=== PATIENT | female | born 1980 | race Two or more races ===

== ENCOUNTER 2020-04-11 13:50 | Emergency (ER) | payer MEDICAID, SELFPAY | END 2020-04-11 16:14 | disposition left against medical advice (07) | PROVIDERS: Emergency Provider Emergency Medicine; PCP Student in an Organized Health Care Education/Training Program | DX: M54.5 Low back pain (principal) | CPT/HCPCS: 99281 ==

== ENCOUNTER 2020-07-29 15:04 | Outpatient (REF) | payer MEDICAID, SELFPAY ==
--- NOTE | ~2020-07-29 | US_ITS ---
EXAMINATION: US DIAGNOSTIC ULTRASOUND BREAST, LEFT breast CLINICAL INFORMATION: Six-month follow-up left breast nodule. COMPARISON: December 30, 2019 and July 02, 2019. TECHNIQUE: Ultrasound of the breast is performed with real-time alonso scale imaging and color Doppler. FINDINGS: There is again noted to be a stable well-circumscribed hypoechoic lesion 1:00 position 2 cm from the nipple measuring approximately 6 x 3 x 6 mm in size. This is avascular and wider than tall. No distal sound shadowing appreciated. Results are discussed with the patient at time of visit. US/US breast LT limited IMPRESSION: Stable benign-appearing left breast mass 1:00 position 2 cm from nipple for which one-year follow-up ultrasound study is recommended. ASSESSMENT: BI-RADS 3: Probably Benign RECOMMENDATION: Diagnostic ultrasound in 12 months. This patient's information was entered into a reminder system with a target due date for their next mammogram.
== END 2020-07-29 15:05 | disposition home or self-care (01) ==
LOC: HO.MAMMO 15:04
PROVIDERS: Visit Provider Student in an Organized Health Care Education/Training Program
DX: N63.21 Unspecified lump in the left breast, upper outer quadrant (principal)
CPT/HCPCS: 76642

== ENCOUNTER 2020-08-19 10:23 | Outpatient (REF) | payer MEDICAID, SELFPAY ==
--- NOTE | ~2020-08-19 | MR_ITS ---
EXAMINATION: MR CERVICAL SPINE WITHOUT CONTRAST CLINICAL INFORMATION: Neck pain. COMPARISON: No relevant prior imaging. TECHNIQUE: MRI of the cervical spine was obtained using routine sequences without contrast. Slightly limited study with motion artifacts. FINDINGS: VERTEBRAL BODIES AND PARASPINAL SOFT TISSUES: There is mild endplate edema posteriorly at the C6-C7 level. The marrow signal is otherwise fairly homogeneous. No compression fractures are seen. Slight retrosubluxation evident at the C4-C5 level. There is a very mild reversal normal cervical lordosis. No significant disc space narrowing is seen. The paraspinal soft tissues are normal. The vertebral artery flow voids are normally seen. The lung apices are clear. CERVICOMEDULLARY JUNCTION AND VISUALIZED POSTERIOR FOSSA: The craniovertebral junction and imaged portions of the brain parenchyma appear normal. No cord signal abnormality or syrinx is seen. SPINAL LEVELS: C2-C3: No disc pathology. No central canal stenosis or foraminal narrowing. C3-C4: No disc abnormality. Patent central canal and foramina. C4-C5: Mild retrosubluxation and posterior disc bulge with mild impression upon the ventral cord and thecal sac. No central canal stenosis or foraminal narrowing. C5-C6: Small central disc protrusion. No central canal stenosis or foraminal narrowing. C6-C7: Mild posterior disc bulge and endplate spurring with a central to right lateral recess disc extrusion mildly distorting the ventral thecal sac. No central canal stenosis. Patent foramina. C7-T1: No disc pathology. No central canal stenosis or foraminal narrowing. MR/MR cervical spine wo con IMPRESSION: Mild posterior endplate edema and disc bulge at C6-C7 with a central to right lateral recess disc extrusion mildly distorting the ventral thecal sac. No central canal stenosis. Mild retrosubluxation and disc bulge slightly impressing upon the ventral cord and thecal sac at C4-C5. Small central disc protrusion at the C5-C6 level.
== END 2020-08-19 10:24 | disposition home or self-care (01) ==
LOC: HO.MRI 10:23
PROVIDERS: Visit Provider Emergency Medicine
DX: M54.2 Cervicalgia (principal); M54.9 Dorsalgia, unspecified
CPT/HCPCS: 72141

== ENCOUNTER 2020-08-31 12:15 | Emergency (ER) | payer MEDICAID, SELFPAY ==
--- NOTE | ~2020-08-31 | CT_ITS ---
EXAMINATION: CT HEAD WITHOUT CONTRAST CLINICAL INFORMATION: Severe headache. COMPARISON: None TECHNIQUE: Contiguous axial imaging was performed from the skull base to vertex without intravenous administration of contrast. This CT examination was performed using dose optimization techniques as appropriate, variously including the following: *Automated exposure control *Adjustment of mA and/or kV according to patient size (this includes techniques or standardized protocols for targeted exams where dose is matched to indication/reason for exam; i.e. extremities or head) *Use of iterative reconstruction technique DLP: 581 mGy-cm FINDINGS: There is no evidence of acute intracranial hemorrhage or territorial infarction. No abnormal mass effect or midline shift is seen. [place] to white matter differentiation is well preserved. No extra-axial fluid collections are identified. The ventricles are normal in size. There is no abnormal attenuation within the brain parenchyma. The osseous structures and soft tissues are normal. There is small polyp or retention cyst right maxillary sinus. Rest of the paranasal sinuses and mastoid air cells are well-aerated. CT/CT head/brain wo con IMPRESSION: No acute intracranial process seen.
[2020-08-31 12:29] VITALS: BP 142/70; PULSE 87; RESP 18; TEMP 36.8; O2SAT 100; BMI 22.6
--- NOTE | 2020-08-31 13:49 | ED_ITS ---
HPI - Headache General Chief Complaint: Headache Stated Complaint: HEAD PRESSURE BLURRED VISION Time Seen by Provider: 08/31/20 13:48 Source: patient Mode of arrival: ambulatory Limitations: no limitations History of Present Illness HPI Narrative: 40 yo female previously healthy here with complaints of generalized headache with photophobia, nausea x4 days. Also c/o pain in the posterior head which radiates up to the top bilaterally. +diffuse neck pain which patient tells me is chronic. Had cervical MRI 08/19 which showed Mild posterior endplate edema and disc bulge at C6-C7 with a central to right lateral recess disc extrusion mildly distorting the ventral thecal sac. No central canal stenosis. Mild retrosubluxation and disc bulge slightly impressing upon the ventral cord and thecal sac at C4-C5. Small central disc protrusion at the C5-C6 level.fevers, chills, vision changes. Related Data Allergies Allergy/AdvReac Type Severity Reaction Status Date / Time Penicillins [PCN] Allergy Intermediate RASH Verified 08/31/20 12:37 penicillin V Allergy Unknown rash Verified 08/31/20 12:37 Review of Systems Review of Systems: Yes all other systems are reviewed and are negative Constitutional: Constitutional: Reports no additional constitutional complaints, Denies body ache(s), Denies chills, Denies fever(s), Reports headache(s) and Denies weakness Eyes: Eyes: Reports no additional eye complaints and Denies change in vision ENT: Reports system reviewed and no additional complaints, except as documented, Denies dizziness, Reports headache(s), Denies nasal congestion, Denies nasal discharge and Denies neck pain Cardiovascular: Cardiovascular: Reports no additional cardiovascular com plaints, Denies chest pain, Denies leg edema and Denies dyspnea Respiratory: Respiratory: Reports no additional respiratory complaints, Denies cough and Denies dyspnea Gastrointestinal: Gastrointestinal: Reports no additional gastrointestinal complaints, Denies abdominal pain, Denies diarrhea, Denies nausea and Denies vomiting Genitourinary: Genitourinary: Reports no additional female genitourinary complaints and Denies urinary incontinence Musculoskeletal: Musculoskeletal: Reports no additional musculoskeletal complaints, Denies back pain, Denies arthralgias, Denies joint swelling, Denies neck pain, Denies numbness and Denies tingling Integumentary/Breasts: Skin/Breast: Reports system reviewed and no additional complaints, except as docu and Denies rash Neurologic: Reports system reviewed and no additional complaints, except as documented, Denies Abnormal speech present, Denies dizziness, Reports headache(s), Denies numbness, Denies tingling and Denies weakness PMFSH Social History Social History Alcohol intake: current Alcohol intake frequency: holidays/special occasions only Smoking Status: Former smoker Use of substances other than those prescribed or required for medical reasons: Yes Substance Use Type: Marijuana Substance Use Frequency: Occasionally Advance Directives: No Advance Directives Information Provided: No Physical Exam Vital Signs: Vital Signs: Last Vital Signs Temp 98.6 F 08/31/20 16:15 Pulse 76 08/31/20 16:15 Resp 18 08/31/20 16:15 BP 100/59 L 08/31/20 16:15 Pulse Ox 100 08/31/20 16:15 Body Mass Index 22.6 Const: General: cooperative, healthy appearing, comfortable and no acute distress Orientation/consciousness: patient oriented x3 Limitations: no limitations HENMT: Head: Yes normal to inspection Ears: hearing grossly normal bilaterally General nose exam: Normal external nose present Face and sinus: Yes normal facial exam Mouth: Normal oral and palatal mucosa present Throat: Yes posterior oropharynx normal Eyes: General: appearance normal, both eyes and all related structures Pupils: Equal, round and reactive pupils present Neck: Other: cervical lower midline tenderness with no step offs or deformities. FROM. Neck: Yes normal visual inspection, Yes no lymphadenopathy and Yes no meningeal signs Chest: Chest palpation & inspection: normal inspection of the chest Resp: Effort & Inspection: normal respiratory effort Auscultation: clear to auscultation bilaterally Cardio: Rate: regular rate Rhythm: regular rhythm Peripheral pulses: Peripheral pulses 2+ throughout GI: Inspection: Yes normal to inspection Palpation (GI): Soft to palpation and nontender Auscultation: normal bowel sounds Back/Spine/Pelvis: Thoracic/Lumbar Spine: thoracic and lumbar spine normal to inspection Skin: General skin exam: no rashes or lesions noted Neuro: General: patient oriented x3, no meningeal signs, no focal motor deficits and normal sensation to monofilament Cranial nerves: Yes Equal, round and reactive pupils present Cognition (Neuro): normal cognition Speech: No Abnormal speech present Gait exam (Neuro): Normal gait present Motor exam (neuro): 5/5 motor strength present throughout Sensory Exam: Normal double simultaneous stimulation for sensation Coordination: [id number] test normal and [id number] test normal Extrem: General: Yes normal to inspection Course Course Course Narrative: 40 yo female here with generalized LOVE, photophobia, nausea x 4 days, acute on chronic neck pain. Normal neuro exam. No paresthesias/weakness of the UE concerning for cord compression. WIll need labs, PIV, reglan/benadryl, NSB, CT head. 1730-Pain is resolved. Feeling much improved. Tolerating PO. Imaging negative. Labs unremarkable. Reviewed findings with patient and when to return to ED. Comfortable with discharge home. MDM - Headache MDM Narrative Medical decision making narrative: ICH versus lesion versus cervical cord compression versus migraine headache Medical Records Attestation: I reviewed the patient's medical records. Lab Data Attestation: I reviewed the patient's lab results. Result diagrams: 08/31/20 14:08 08/31/20 14:08 Labs: Lab Results 08/31/20 08/31/20 08/31/20 Range/Units 14:08 14:08 14:08 WBC 10.4 (4.8-10.8) X10*3/uL RBC 4.30 (4.20-5.50) X10*6/uL Hgb 12.6 (12.0-16.0) g/dl Hct 38.8 (37-47) % MCV 90.2 (80-98) fL MCH 29.3 (27.0-33.0) pg MCHC 32.5 (31.0-35.0) g/dl RDW 13.5 (11.0-16.0) % Plt Count 359 (160-400) X10*3/uL MPV 9.7 (9.4-12.3) fL Immature Gran % (Auto) 0.3 (0.0-0.4) % Neut % (Auto) 67.5 (45-73) % Lymph % (Auto) 25.4 (20-40) % [place] % (Auto) 6.3 (2-11) % Eos % (Auto) 0.3 (0-4) % Baso % (Auto) 0.2 (0-2) % Lymph # (Auto) 2.6 (1.2-4.9) X10*3/uL [place] # (Auto) 0.7 (0.1-1.2) X10*3/uL Eos # (Auto) 0.0 (0.0-0.4) X10*3/uL Baso # (Auto) 0.0 (0.0-0.2) X10*3/uL Abs Immat Gran (auto) 0.03 (0.00-0.03) X10*3/uL Absolute Neuts (auto) 7.0 (2.0-8.3) X10*3/uL Absolute Nucleated RBC 0.000 (0.0-0.012) X10*3/uL Nucleated RBC % (auto) 0.0 (0.0-0.2) /100WBC Sodium 139 (135-145) mmol/L Potassium 4.1 (3.3-5.1) mmol/L Chloride 100 (96-108) mmol/L Carbon Dioxide 25 (22-29) mmol/L Anion Gap 18 (12-20) BUN 5 L (9-16) mg/dL Creatinine 0.74 (0.5-1.4) mg/dL Estim Creat Clear Calc 92.7 Estimated GFR > 60 Random Glucose 82 (60-115) mg/dL Calcium 9.4 (8.4-10.2) mg/dL Urine Test NEGATIVE (NEGATIVE) Imaging Data CT scan - head: Attestation: I personally reviewed and interpreted this imaging study as follows: Radiologist's impression: EXAMINATION: CT HEAD WITHOUT CONTRAST CLINICAL INFORMATION: Severe headache. COMPARISON: None TECHNIQUE: Contiguous axial imaging was performed from the skull base to vertex without intravenous administration of contrast. This CT examination was performed using dose optimization techniques as appropriate, variously including the following: *Automated exposure control *Adjustment of mA and/or kV according to patient size (this includes techniques or standardized protocols for targeted exams where dose is matched to indication/reason for exam; i.e. extremities or head) *Use of iterative reconstruction technique DLP: 581 mGy-cm FINDINGS: There is no evidence of acute intracranial hemorrhage or territorial infarction. No abnormal mass effect or midline shift is seen. [place] to white matter differentiation is well preserved. No extra-axial fluid collections are identified. The ventricles are normal in size. There is no abnormal attenuation within the brain parenchyma. The osseous structures and soft tissues are normal. There is small polyp or retention cyst right maxillary sinus. Rest of the paranasal sinuses and mastoid air cells are well-aerated. CT/CT head/brain wo con IMPRESSION: No acute intracranial process seen. Discharge Plan Discharge Clinical Impression: Tension headache Patient Disposition: Home, Self-Care Instructions: Migraine Headache (ED) Additional Instructions: Avoid migraine triggers Drink plenty of fluids, get plenty of rest, avoid stress Follow-up with primary care doctor You have Fioricet at home to take as needed Referrals: Bel Sheriff MD [Primary Care Provider] - 2 days
[2020-08-31 13:59] VITALS: BP 130/84; PULSE 74; RESP 18; TEMP 36.7; O2SAT 99
[2020-08-31] MEDS: Metoclopramide HCl 10 MG/2 ML VIAL IVPUSH (14:18)
[2020-08-31] MEDS: 0.9 % Sodium Chloride 1,000 ML 999 ML IV (14:18)
[2020-08-31] MEDS: diphenhydrAMINE HCL 50 MG/ML VIAL 25 MG IVPUSH (14:18)
--- NOTE | 2020-08-31 14:19 | PC.NURSE ---
iv inserted, labs drawn, urine obtained, vss, pt medicated per order, will continue to monitor
[2020-08-31 14:24] LABS: MANUAL DIFF FLAG NO
[2020-08-31 14:29] LABS: Basophils Percent Auto 0.2 % (0-2); Eosinophils Percent Auto 0.3 % (0-4); Hematocrit 38.8 % (37-47); Hemoglobin 12.6 g/dl (12.0-16.0); Imm Gran Abs Auto 0.03 X10*3/uL (0.00-0.03); Imm Gran Pct Auto 0.3 % (0.0-0.4); Lymphocytes Absolute Auto 2.6 X10*3/uL (1.2-4.9); Lymphocytes Percent Auto 25.4 % (20-40); Mean Corpuscular HGB Conc 32.5 g/dl (31.0-35.0); Mean Corpuscular Hemoglobin 29.3 pg (27.0-33.0); Mean Corpuscular Volume 90.2 fL (80-98); Mean Platelet Volume 9.7 fL (9.4-12.3); Monocytes Absolute Auto 0.7 X10*3/uL (0.1-1.2); Monocytes Percent Auto 6.3 % (2-11); Neutrophils Percent Auto 67.5 % (45-73); Platelet Count 359 X10*3/uL (160-400); Red Cell Distribution Width 13.5 % (11.0-16.0); UPreg QC Valid YES; Urine Pregnancy NEGATIVE (NEGATIVE); White Blood Count 10.4 X10*3/uL (4.8-10.8)
[2020-08-31 14:51] LABS: Anion Gap 18 (12-20); Blood Urea Nitrogen 5 mg/dL (9-16); Calcium 9.4 mg/dL (8.4-10.2); Carbon Dioxide 25 mmol/L (22-29); Chloride 100 mmol/L (96-108); Creatinine Clr Calc Pharmacy 92.7; Estimated Glomerular Filt Rate > 60; Glucose Random 82 mg/dL (60-115); Potassium 4.1 mmol/L (3.3-5.1); Sodium 139 mmol/L (135-145)
--- NOTE | 2020-08-31 15:30 | PC.NURSE ---
patient sleeping, arm bent- pt educated to keep arm straight so fluids can infuse
[2020-08-31 16:15] VITALS: BP 100/59; PULSE 76; RESP 18; TEMP 37; O2SAT 100
--- NOTE | 2020-08-31 16:17 | PC.NURSE ---
patient a&ox3, vitals stable, patient states her pain has reduced to a 3/10, patient again asked to keep arm straight so IVF can finish infusing, will continue to monitor.
== END 2020-08-31 18:00 | disposition home or self-care (01) ==
PROVIDERS: Nurse Practitioner Family; Emergency Provider Emergency Medicine; PCP Student in an Organized Health Care Education/Training Program
DX: G44.209 Tension-type headache, unspecified, not intractable (principal); Z87.891 Personal history of nicotine dependence
CPT/HCPCS: 36415; 70450; 80048; 81025; 85025; 96365; 96375; 99284; J1200; J2765

== ENCOUNTER 2021-07-03 10:25 | Outpatient (REF) | payer MEDICAID, SELFPAY ==
--- NOTE | ~2021-07-03 | MM_ITS ---
EXAMINATION: MM SCREENING DIGITAL BREAST TOMOSYNTHESIS, BILATERAL CLINICAL INFORMATION: Screening. Asymptomatic. The lifetime risk of breast cancer based on the Tyrer-Cuzick Model is 10%. COMPARISON: Mammography: 07/02/2019, 01/02/2018 (baseline). TECHNIQUE: Digital breast tomosynthesis is performed in both the craniocaudal and mediolateral oblique views along with computer-aided detection (CAD). Synthesized 2D images are generated from the tomosynthesis. Additional left CC view is provided. FINDINGS: There are scattered areas of fibroglandular density (ACR BI-RADS breast composition Category b). Breast tissue composition borders on heterogeneously dense in the upper outer quadrants. The right breast is unremarkable. There is no interval mass or architectural abnormality. Neither breast shows abnormal calcifications. The bilateral axilla and skin contours are unremarkable. The left CC views show parenchymal asymmetry versus asymmetric density posterior outer breast. There is no correlate on MLO projection and finding likely represents incompletely compressed glandular tissue or summation artifact. Patient will be recalled for additional imaging. MM/MM tomosynthesis screening BI IMPRESSION: 1. Left: Parenchymal asymmetry/asymmetric density posterior outer breast limited to CC view. Finding may be related to summation artifact or incompletely compressed glandular tissue. 2. Right: No mammographic evidence of malignancy. ASSESSMENT: BI-RADS 0: Incomplete - Need Additional Imaging Evaluation RECOMMENDATION: 1. Additional views of the left breast (spot CC, rolled CC x2). 2. Targeted ultrasound if warranted after review of the additional views. 3. Radiology department staff will contact the patient for additional imaging. This patient's information was entered into a reminder system with a target due date for their next mammogram.
== END 2021-07-03 10:26 | disposition home or self-care (01) ==
LOC: HO.MAMMO 10:25
PROVIDERS: PCP Student in an Organized Health Care Education/Training Program; Visit Provider Student in an Organized Health Care Education/Training Program
DX: Z12.31 Encounter for screening mammogram for malignant neoplasm of breast (principal)
CPT/HCPCS: 77063; 77067

== ENCOUNTER 2021-07-19 14:02 | Outpatient (REF) | payer MEDICAID, SELFPAY ==
--- NOTE | ~2021-07-19 | MM_ITS ---
EXAMINATION: MM DIAGNOSTIC DIGITAL BREAST TOMOSYNTHESIS, LEFT CLINICAL INFORMATION: Recall from screening for asymmetric density posterior outer left breast on CC view likely summation artifact or incompletely compressed glandular tissue. COMPARISON: Mammography: 07/03/2021, 07/02/2019 TECHNIQUE: Digital breast tomosynthesis is performed. 2D images are generated from the tomosynthesis. The following views are obtained: Rolled exaggerated CC x2, spot CC. FINDINGS: There are scattered areas of fibroglandular density (ACR BI-RADS breast composition Category b). Breast tissue borders on heterogeneously dense. The additional views show no persistent asymmetric density or underlying mass or architectural abnormality in the area for recall. Results are discussed with the patient at time of visit. MM/MM tomosynthesis added views L IMPRESSION: Additional views show no significant changes from prior studies. ASSESSMENT: BI-RADS 1: Negative RECOMMENDATION: Routine annual mammography screening. This patient's information was entered into a reminder system with a target due date for their next mammogram.
== END 2021-07-19 14:03 | disposition home or self-care (01) ==
LOC: HO.MAMMO 14:02
PROVIDERS: Visit Provider Student in an Organized Health Care Education/Training Program
DX: N64.89 Other specified disorders of breast (principal)
CPT/HCPCS: 77061; 77065

== ENCOUNTER 2022-12-31 21:33 | Emergency (ER) | payer MEDICAID, SELFPAY ==
--- NOTE | ~2022-12-31 | XR_ITS ---
EXAMINATION: XR FOOT, LEFT CLINICAL INFORMATION: Pain; question fracture. COMPARISON: None available. TECHNIQUE: AP, lateral, and oblique views of the left foot. FINDINGS: The bones and soft tissues are normal. No fracture. Alignment is anatomic. Joint spaces are maintained. XR/XR foot LT min 3V IMPRESSION: Normal left foot.
[2022-12-31 21:53] VITALS: BP 177/63; PULSE 73; RESP 18; TEMP 36.7; O2SAT 100; BMI 20.6
--- NOTE | 2023-01-01 01:03 | ED_ITS ---
HPI - Extremity Injury (Lower) General Chief Complaint: Extremity Injury, Lower Stated Complaint: left foot swollen inj Time Seen by Provider: 12/31/22 23:16 Source: patient Mode of arrival: ambulatory Limitations: no limitations History of Present Illness HPI Narrative: Apparently patient was carrying bucket full with water reported down and pulled a muscle the right forearm earlier today felt radiating shooting tingling pain in lateral aspect of the forearm tender to touch and mid forearm no deformity good muscle strength also Dereje her left ankle while putting putting the bucket down Related Data Previous Rx's Medication Instructions Recorded ibuprofen 600 mg tablet 600 mg PO Q6H PRN fever or pain 01/01/23 #30 tabs Allergies Allergy/AdvReac Type Severity Reaction Status Date / Time Penicillins [PCN] Allergy Intermediate RASH Verified 03/10/21 13:08 penicillin V Allergy Unknown rash Verified 03/10/21 13:08 Review of Systems Review of Systems: Yes all other systems are reviewed and are negative [facility] Social History Social History Alcohol intake: current Alcohol intake frequency: holidays/special occasions only Substance Use Type: Marijuana Advance Directives: No Advance Directives Information Provided: Yes Physical Exam Vital Signs: Vital Signs: Last Vital Signs Temp 97.8 F 01/01/23 01:21 Pulse 76 01/01/23 01:21 Resp 16 01/01/23 01:21 BP 103/69 01/01/23 01:21 Pulse Ox 98 01/01/23 01:21 O2 Del Method Room Air 01/01/23 01:21 BMI result Body Mass Index 20.6 Extrem: Elbow/forearm/wrist images: 1. Tender pronator teres muscle area neurovascular intact good muscle strength neurovascular intact Upper/lower leg/hip images: 1. Soft tissue swelling left ankle area good range of movement Medications Administered Discontinued Medications Generic Name Dose Route Start Last Admin Trade Name Freq PRN Reason Stop Dose Admin Ketorolac Tromethamine 60 mg 01/01/23 01:17 01/01/23 01:28 Ketorolac Tromethamine 60 Mg/2 Ml Vial IM 01/01/23 01:18 60 mg ONCE ONE Administration Lidocaine HCl 4 ml 01/01/23 01:17 01/01/23 01:28 Lidocaine Hcl 1 % Mpf 2 Ml Vial INFILTRATI 01/01/23 01:18 4 ml ONCE ONE Administration Medical Decision Making Medical Decision Making [facility] Narrative: Patient with tender right pronator teres syndrome lidocaine 1% 2 mL was injected as tender side patient improved remarkably neurovascular intact Discharge Plan Discharge Clinical Impression: 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
[2023-01-01 01:21] VITALS: BP 103/69; PULSE 76; RESP 16; TEMP 36.6; O2SAT 98
[2023-01-01] MEDS: Lidocaine HCl 1 % MPF 2 ML VIAL 4 ML INFILTRATI (01:28)
[2023-01-01] MEDS: Ketorolac Tromethamine 60 MG/2 ML VIAL IM (01:28)
== END 2023-01-01 01:45 | disposition home or self-care (01) ==
PROVIDERS: Emergency Provider Internal Medicine; PCP Student in an Organized Health Care Education/Training Program
DX: G56.81 Other specified mononeuropathies of right upper limb (principal); S96.912A Strain of unspecified muscle and tendon at ankle and foot level, left foot, initial encounter; X50.1XXA Overexertion from prolonged static or awkward postures, initial encounter; M79.601 Pain in right arm; F12.90 Cannabis use, unspecified, uncomplicated; Y93.89 Activity, other specified; Y92.9 Unspecified place or not applicable; Y99.9 Unspecified external cause status
CPT/HCPCS: 64450; 73630; 96372; 99283; 99284; J1885

== ENCOUNTER 2024-02-18 11:26 | Outpatient (REF) | payer MEDICAID, SELFPAY ==
[2024-02-18 15:00] LABS: MANUAL DIFF FLAG NO
[2024-02-18 15:10] LABS: Basophils Absolute Auto 0.1 X10*3/uL (0.0-0.2); Basophils Percent Auto 0.7 % (0-2); Eosinophils Absolute Auto 0.1 X10*3/uL (0.0-0.4); Eosinophils Percent Auto 1.8 % (0-4); Hematocrit 33.8 % (37.0-47.0); Hemoglobin 10.7 g/dl (12.0-16.0); Imm Gran Abs Auto 0.02 X10*3/uL (0.00-0.03); Imm Gran Pct Auto 0.3 % (0.0-0.4); Lymphocytes Absolute Auto 2.8 X10*3/uL (1.2-4.9); Lymphocytes Percent Auto 36.6 % (20-40); Mean Corpuscular HGB Conc 31.7 g/dl (31.0-35.0); Mean Corpuscular Hemoglobin 24.8 pg (27.0-33.0); Mean Corpuscular Volume 78.2 fL (80.0-98.0); Mean Platelet Volume 9.6 fL (9.4-12.3); Monocytes Absolute Auto 0.5 X10*3/uL (0.1-1.2); Neutrophils Absolute Auto 4.1 x10*3/uL (2.0-8.3); Neutrophils Percent Auto 53.6 % (45-73); Platelet Count 465 X10*3/uL (160-400); Red Blood Count 4.32 X10*6/uL (4.20-5.50); Red Cell Distribution Width 17.2 % (11.0-16.0); White Blood Count 7.6 X10*3/uL (4.8-10.8)
== END 2024-02-18 11:27 | disposition home or self-care (01) ==
LOC: HO.CHCLDS 11:26
PROVIDERS: Visit Provider Student in an Organized Health Care Education/Training Program
DX: D50.9 Iron deficiency anemia, unspecified (principal)
CPT/HCPCS: 36415; 85025

== ENCOUNTER 2024-02-28 15:12 | Outpatient (REF) | payer MEDICAID, SELFPAY ==
--- NOTE | ~2024-02-28 | MM_ITS ---
EXAMINATION: MM SCREENING DIGITAL BREAST TOMOSYNTHESIS, BILATERAL CLINICAL INFORMATION: Screening. Asymptomatic. COMPARISON: Mammography: Comparison is made with available priors TECHNIQUE: Digital breast mammography with tomosynthesis is performed in both the craniocaudal and mediolateral oblique views along with computer-aided detection (CAD). FINDINGS: The breasts are heterogeneously dense, which may obscure small masses (ACR BI-RADS breast composition Category c). There are no significant masses, abnormal calcifications, or other abnormalities. MM/MM tomosynthesis screening BI IMPRESSION: No mammographic evidence of malignancy. ASSESSMENT: BI-RADS BI-RADS 1 - Negative RECOMMENDATION: Routine annual mammography screening. 1 year F/U This examination should not preclude the clinical evaluation of a suspicious palpable abnormality. This patient's information was entered into a reminder system with a target due date for their next mammogram. Electronically signed by: Julia Burdick DO 03/11/2024 03:17 PM EDT
== END 2024-02-28 15:13 | disposition home or self-care (01) ==
LOC: HO.MAMMO 15:12
PROVIDERS: PCP Student in an Organized Health Care Education/Training Program; Visit Provider Student in an Organized Health Care Education/Training Program
DX: Z12.31 Encounter for screening mammogram for malignant neoplasm of breast (principal)
CPT/HCPCS: 77063; 77067

== ENCOUNTER → 2024-02-28 15:15 | Outpatient (BNV) | payer MEDICAID, SELFPAY | PROVIDERS: PCP Student in an Organized Health Care Education/Training Program; Visit Provider Internal Medicine | DX: Z12.31 Encounter for screening mammogram for malignant neoplasm of breast (principal) | CPT/HCPCS: 77063; 77067 ==

== ENCOUNTER 2024-03-05 11:17 | Outpatient (REF) | payer MEDICAID, SELFPAY ==
[2024-03-06 08:11] LABS: Syphilis Screen Nonreactive (Nonreactive)
[2024-03-06 08:16] LABS: HBS Num1 9.96 mIU/mL (0-7.99); HBc Num1 0.06 S/CO (0.00-0.79); HBsAGNum1 0.36 S/CO (0.00-0.99); HIV AB/AG Nonreactive (Nonreactive); HIV Num 1 0.07 S/CO (0.00-0.99); Hepatitis B Core Antibody Nonreactive (Nonreactive); Hepatitis B Surface Antigen Negative (Negative); ~HepC Num1 0.07 S/CO (0.00-0.79); ~Hepatitis C Antibody Nonreactive (Nonreactive)
[2024-03-06 09:07] LABS: HBS Num2 10.54 mIU/mL (0-7.99); HBS Num3 9.68 mIU/mL (0-7.99); ~Hepatitis B Surface Antibody GRAYZONE (Nonreactive)
[2024-03-09 19:03] LABS: HPV mRNA E6/E7 Not Detected (Not Detected)
[2024-03-11 15:17] LABS: C. trachomatis RNA TMA NOT DETECTED
[2024-03-11 15:18] LABS: N. gonorrhoeae RNA TMA NOT DETECTED; Trichomonas (NAAT) NOT DETECTED
== END 2024-03-05 11:18 | disposition home or self-care (01) ==
LOC: HO.HHCL 11:17
PROVIDERS: Visit Provider Advanced Practice Midwife
DX: Z11.3 Encounter for screening for infections with a predominantly sexual mode of transmission (principal); Z12.4 Encounter for screening for malignant neoplasm of cervix
CPT/HCPCS: 36415; 86704; 86706; 86780; 86803; 87340; 87389; 87491; 87591; 87624; 87661; 88175

== ENCOUNTER 2024-04-23 15:27 | Outpatient (REF) | payer MEDICAID, SELFPAY | END 2024-04-23 15:28 | disposition home or self-care (01) | LOC: HO.XRAY 15:27 | PROVIDERS: PCP Student in an Organized Health Care Education/Training Program; Visit Provider Internal Medicine | DX: M25.561 Pain in right knee (principal); G89.29 Other chronic pain | CPT/HCPCS: 73562 ==

== ENCOUNTER 2024-05-16 15:00 | Outpatient (REF) | payer MEDICAID, SELFPAY ==
--- NOTE | ~2024-05-16 | MR_ITS ---
EXAMINATION: MR KNEE WITHOUT CONTRAST, RIGHT CLINICAL INFORMATION: Patient reports of pain and swelling. Patient is not able to turn leg a certain way without excruciating pain since summer. Possible rowing injury. COMPARISON: XR right knee 04/23/2024. TECHNIQUE: MRI of the knee without contrast was performed using routine sequences on a high-field scanner. FINDINGS: MENISCI: Medial Meniscus: Intact. Lateral Meniscus: Intact. LIGAMENTS: Cruciate: Intact. Collateral: Intact. EXTENSOR MECHANISM: Intact. There is edema between the proximal patellar tendon and the lateral trochlea which may indicate chronic patellofemoral malalignment/friction syndrome/fat pad impingement. ARTICULAR CARTILAGE/BONE: Patellofemoral Compartment: Longitudinal chondral fissuring with signal heterogeneity and mild subchondral edema of the central trochlea. Focal cartilage irregularity of the medial trochlea. Focal partial-thickness cartilage loss of the medial patellar facet. Medial Compartment: Normal. Lateral Compartment: Normal. JOINT FLUID AND BURSAE: No significant joint effusion. Tendinitis and possible small interstitial partial tear at the medial gastrocnemius origin. MR/MR knee RT wo con IMPRESSION: 1. No meniscal tear. 2. Mild patellofemoral compartment osteoarthritis. 3. Tendinitis and possible small interstitial partial tear at the medial gastrocnemius origin. Electronically signed by: Schuyler Kearney MD 05/21/2024 01:15 PM [facility]
== END 2024-05-16 15:01 | disposition home or self-care (01) ==
LOC: HO.MRI 15:00
PROVIDERS: PCP Student in an Organized Health Care Education/Training Program; Visit Provider Student in an Organized Health Care Education/Training Program
DX: M25.561 Pain in right knee (principal)
CPT/HCPCS: 73721

== ENCOUNTER 2025-03-05 15:18 | Outpatient (REF) | payer MEDICAID, SELFPAY ==
--- OUTSIDE RECORDS SUMMARY | 2025-03-05 15:22 | XMS_ITS | Clinical Summary ---
Author Organization [employer] Address [address] [facility] [address] [place] [address] Care Team Providers Care Quarry Manager Name Role Phone Padmini Miller MISAEL Primary Care Provider [phone] Allergies Active Allergy Reactions Criticality Noted Date Comments Penicillins Rash Low 02/18/2014 Medications Calcium Carb-Cholecalc iferol 500-10 MG-MCG tablet 1 tab po qdaily 9 Active copper (Paragard) IUD 1 each by Intrauterine route 1 (one) time. Inserted 2020 Active ferrous sulfate 325 (65 Fe) MG tablet Take 1 tablet (325 mg) by mouth with breakfast. 30 tablet 11 4 02/19/20 25 Active Problems Problem Noted Date Diagnosed Date Migraine without status migrainosus, not intract able 02/18/2024 Herpes zoster without complication 11/14/2017 Social History Tobacco Use Types Packs/Day Years Used Date Smoking Tobacco: Never Smokeless Tobacco: Never Tobacco Cessation:Counseling Given: Not Answered Alcohol Use Standard Drinks/Week Comments Never 0 (1 standard drink = 0.6 oz pur e alcohol) Depression Answer Date Recorded Patient Health Questionnaire-9 Score 0 02/18/2024 Patient Health Questionnaire-9 Score 0 02/18/2024 Last PHQ-9: Questionnaire Data Not on file 0 02/18/2024 Housing Stability Answer Date Recorded What is your housing situation today? I have eliezer gould 02/07/[address] you li ve. Do you have problems with any of the following? None of the above 02/07/2024 Food Insecurity Answer Date Recorded Within the past 12 months, y ou worried that your food would run out before you got money to buy more: Never True 02/07/2024 Within the past 12 months,th e food you bought just didn't last and you didn't have enough money to get more: Never True 11/2023 Transportation Answer Date Recorded In the past 12 months, has l ack of transportation kept you from medical appts, meetings, work or from getting things needed for daily living? No 02/07/2024 Utilities Answer Date Recorded In the past 12 months, has t he electric, gas, oil or water company threatened to shut off services in your home? No 02/07/2024 Depression Answer Date Recorded Patient Health Questionnaire-2 Score 0 02/18/2024 Internet Access Answer Date Recorded Internet Access Q1 Yes 02/07/2024 Internet Access Q2 Not on file 02/07/2024 Comments No Sex and Gender Information Value Date Recorded Sex Assigned at Female 04/02/2022 10:26 AM EDT Legal Sex Female 10:26 AM EDT Gender Identity Female 04/02/2022 10:26 AM EDT Sexual Orientation Straight 04/02/2022 10 :26 AM EDT Last Filed Vital Signs Vital Sign Reading Time Taken Comments Blood Pressure 98/61 05/08/2024 11:27 AM EST Pulse 71 05/08/2024 11:27 AM EST Temperature 36.7 C (98 F) 05/08/2024 11:27 AM EST Respiratory Rate 16 05/08/2024 11:27 AM EST Oxygen Saturation 99% 05/08/2024 11:27 AM EST Inhaled Oxygen Concentration - - Weight 69.4 kg (153 lb) 05/08/2024 11:27 AM EST Height 162.6 cm (5' 4 ) 05/08/2024 11:27 AM EST Body Mass Index 26.26 05/08/2024 11:27 AM EST Plan of Treatment Health Maintenance Due Date Last Done Comments Disability Screening 1982 Alcohol/Substance Use Screening 1994 HPV Vaccines (1 - 3-dose series) 1997 Hepatitis B Vaccines (1 of 3 - 19+ 3-dose series) 2001 COVID-19 Vaccine ( season) 2025 Influenza Vaccine (#1) 2025 03/01/2014 SDOH Screening 02/06/2025 02/07/2024 Depression Screening 02/17/2025 02/18/2024, 02/18/20 24 Mammogram 02/27/2025 02/28/2024, 07/04, 07/03/2021, Additional history exists Family Planning (PISQ) 03/05/2025 03/05/2024 Tobacco Screening 05/08/2025 05/08/2024 Cervical Cancer Screening 03/05/2029 HPV/Cotest 03/05/2029 03/05/2024 Pap Smear 03/05/2029 03/05/2024 DTaP/Tdap/Td Vaccines (4 - Td or Tdap) 05/13/2029 05/13/2019, 12/06/2012, 01/27/2010 Zoster Vaccines (1 of 2) 2032 RSV Patients and Patients Aged 60 years or older (1 - 1-dose 75+ series) 2057 HIV Screening Completed 03/05/2024, 06/03, 05/18/2020, Additional history exists Hepatitis C Screening Completed 03/05/2024 , 06/13/2020, 05/13/2019 HIB Vaccines Aged Out No longer eligi ble based on patient's age to complete this topic Hepatitis A Vaccines Aged Out No long er eligible based on patient's age to complete this topic IPV Vaccines Aged Out No longer eligi ble based on patient's age to complete this topic Meningococcal B Vaccine Aged Out No l onger eligible based on patient's age to complete this topic Meningococcal Vaccine Aged Out No bird kai eligible based on patient's age to complete this topic Pneumococcal Vaccine: Pediatrics (0 to 5 Years) and At-Risk Patients (6 to 49) Years Aged Out No longer eligible based on patient's age to complete this topic RSV under 20 months Aged Out No longe r eligible based on patient's age to complete this topic Rotavirus Vaccines Aged Out No longer eligible based on patient's age to complete this topic Procedures Procedure Name Priority Date/Time Associated Diagnosis Comments HEPATITIS C AB W/REFL TO HCV RNA, QN, PCR Routine 03/05/2024 11:20 AM EDT Screening examination for venereal disease HIV 1/2 ANTIGEN/ANTIBODY, FOURTH GENERATION W/RFL Routine 03/05/2024 11:20 AM EDT Screening examination for venereal disease THINPREP IMAGING PAP AND HPV MRNA E6/E7 Routine 03/05/2024 10:48 AM EDT BI MAMMOGRAM SCREENING TOMOSYNTHESIS BILATERAL Routine 02/28/2024 3:15 PM EDT Encounter for screening mammogram for breast cancer from Last 3 Months or Most Recently Relevant to Health Maintenance Results * Hepatitis C Antibody with Reflex to HCV, RNA, Quantitative, Real-Time PCR (03/05/2024 11:20 AM EDT) Hepatitis C Antibody Nonreactive Nonreactive [facility] Comment:Antibodies to HCV no t detected; does not exclude early acuteHCV infection. Blood Venous blood specimen / Unknown 03/05/2024 11:20 AM EDT 03/05/2024 1:02 PM EDT Leslie Roberts [facility] BLOOD ORDERABLES Zeny oviedo Result [facility] [address] [place] [address] [phone] * HIV-1/2 Antigen and Antibodies, Fourth Generation, with Reflexes (03/05/2024 11:20 AM EDT) HIV AB/AG Nonreactive Nonreactive [facility] Comment:HIV-1 p24 Ag and/or HIV-1/HIV-2 Ab not detected.A test result that is nonreactive does not exclude thepossibility of exposure to or infection with HIV-1 and/orHIV-2. Nonreactive results in this assay for individualswith prior exposure to HIV-1 and/or HIV-2 may be due toantigen and antibody levels that are below the limit ofdetection of this assay.The [employer] HIV Ag/Ab Combo assay result andsupplemental assay results should be interpreted inconjunction with the patient's clinical presentation,history and other laboratory results. If the results areinconsistent with clinical evidence, additional testing issuggested to confirm the result. Blood Venous blood specimen / Unknown 03/05/2024 11:20 AM EDT 03/05/2024 1:02 PM EDT Leslie Roberts [facility] BLOOD ORDERABLES Zeny oviedo Result [facility] [address] [place] [address] [phone] * ThinPrep Imaging Pap and HPV mRNA E6/E7 (03/05/2024 10:48 AM EDT) HPV nRNA E6/E7 Not Detected Not Detected [facility] Comment:Methodology: Transcr iption-Mediated AmplificationThis assay detects E6/E7 viral messenger RNA (mRNA) from 14high-risk HPV types (16,18,31,33,35,39,45,51,52,56,58,59,66,68).Cervical sources are required for HPV testing.If a vaginal source from a patient who has had atotal hysterectomy with removal of cervix wassubmitted, please contact the testing laboratoryfor alternative testing options.For additional information, please refer [email or web address]/IAG700z8(This link if provided for information/educational purposes only.)THIS TEST WAS PERFORMED AT:[employer] [place] [phone] MORAN MD SOURCE: SEE NOTE [facility] Comment:Cervix Report Status: [facility] Clinical Information: SEE NOTE [facility] Comment:None given LMP: SEE NOTE [facility] Comment:NONE GIVEN Prev. PAP: SEE NOTE [facility] Comment:NONE GIVEN Prev. BX: SEE NOTE [facility] Comment:NONE GIVEN Statement Of Adequacy: SEE NOTE [facility] Comment:Satisfactory for jsoé luis luation.Endocervical/transformation zone componentpresent. General Categorization: [facility] Interpretation/Result: SEE NOTE [facility] Comment:Cytology Results: Ne gative for intraepitheliallesion or malignancy. Cytology Comment SEE NOTE [facility] Comment:This Pap test has be en evaluated with computerassisted technology. Behavioral Health Care Manager: SEE NOTE [facility] Comment:GSG, CT(ASCP)CT scre ening location: [address] [address] Review Behavioral Health Care Manager: [facility] Pathologist TNP [facility] PAP Infection [facility] See Note SEE NOTE [facility] Comment:EXPLANATORY NOTE:The Pap is a screening test for cervical cancer. It isnot a diagnostic test and is subject to false negativeand false positive results. It is most reliable when asatisfactory sample, regularly obtained, is submittedwith relevant clinical findings and history, and whenthe Pap result is evaluated along with historic andcurrent clinical information. 03/05/2024 10:4 8 AM EDT 03/05/2024 4:25 PM EDT Narrative [facility] - 03/11/2024 3:16 PM EDT SEE SCANNED RESULTS IN EMRCERVIX us Leslie [facility] PATHOLOGY ORDERABLES Final Result [facility] [address] [place] [address] [phone] * BI Mammogram Screening Tomosynthesis Bilateral (02/28/2024 3:15 PM EDT) Anatomical Region Laterality Modality Breast Bilateral Mammography 02/28/2024 3:15 PM EDT Narrative 03/11/2024 3:20 PM EDT [facility] [address] [place] [address] Mammography Report Signed Patient: Kristen Burks MR#: [id number] : 1980 Acct:[id number] Age/Sex: 43 / F ADM Date: 02/28/24 Loc: MAMMO Attending Dr: Bel Sheriff MD Ordering Physician: Bel Sheriff MD Results: 1Negati ve Date of Service: 02/28/24 Follow Up: 1 Year From Orig inal Mammogram Procedure(s): MM tomosynthesis screening BI Accession Number(s): [id number] cc: eBl Sheriff MD EXAMINATION: MM SCREENING DIGITAL BREAST TOMOSYNTHESIS, BILATERAL CLINICAL INFORMATION: Screening. Asymptomatic. COMPARISON: Mammography: Comparison is made with available priors TECHNIQUE: Digital breast mammography with tomosynthesis is performed in both the craniocaudal and mediolateral oblique views along with computer-aided detection (CAD). FINDINGS: The breasts are heterogeneously dense, which may obscure small masses (ACR BI-RADS breast composition Category c). There are no significant masses, abnormal calcifications, or other abnormalities. MM/MM tomosynthesis screening BI IMPRESSION: No mammographic evidence of malignancy. ASSESSMENT: BI-RADS BI-RADS 1 - Negative RECOMMENDATION: Routine annual mammography screening. 1 year F/U This examination should not preclude the clinical evaluation of a suspicious palpable abnormality. This patient's information was entered into a reminder system with a target due date for their next mammogram. Electronically signed by: Julia Burdick DO 03/11/2024 03:17 PM EDT Dictated By: Julia Burdick DO Signed By: <Electronically signed by Julia Burdick DO in OV> 03/11/24 1517 DD/ 1515 TD/TT: 02/28/24 1537 Votator Machine Operator: Procedure Note Donotuseinterpreter, Image - 03/11/2024 [place] [facility] [address] [place] [address] Mammography Report Signed Patient: Kristen Burks#: [id number] : 1980Acct:[id number] Age/Sex: 43 / FADM Date: 02/28/24 Loc: WILLI.MAMMO Attending Dr: Bel Sheriff MD Ordering Physician: Bel Sheriff MDResults: 1Negati ve Date of Service: 02/28/24Follow Up: 1 Year From Orig inal Mammogram Procedure(s): MM tomosynthesis screening BI Accession Number(s): [id number] cc: Bel Sheriff MD EXAMINATION: MM SCREENING DIGITAL BREAST TOMOSYNTHESIS, BILATERAL CLINICAL INFORMATION: Screening. Asymptomatic. COMPARISON: Mammography: Comparison is made with available priors TECHNIQUE: Digital breast mammography with tomosynthesis is performed in both the craniocaudal and mediolateral oblique views along with computer-aided detection (CAD). FINDINGS: The breasts are heterogeneously dense, which may obscure small masses (ACR BI-RADS breast composition Category c). There are no significant masses, abnormal calcifications, or other abnormalities. MM/MM tomosynthesis screening BI IMPRESSION: No mammographic evidence of malignancy. ASSESSMENT: BI-RADS BI-RADS 1 - Negative RECOMMENDATION: Routine annual mammography screening. 1 year F/U This examination should not preclude the clinical evaluation of a suspicious palpable abnormality. This patient's information was entered into a reminder system with a target due date for their next mammogram. Electronically signed by: Julia Burdick DO 03/11/2024 03:17 PM EDT RP Dictated By: Julia Burdick DO Signed By: <Electronically signed by Julia Burdick DO in OV> 03/11/24 1517 DD/ 1515 TD/TT: 02/28/24 1537 Votator Machine Operator: Bel Sheriff MD IMG BI PROCEDURES Final Result from Last 3 Months or Most Recently Relevant to Health Maintenance Insurance [facility] C3 Care Teams Quarry Manager Relationship Specialty Start Date End Date Padmini Miller CNP PCP - General Family Medicine 01/11/25
== END 2025-03-05 15:19 | disposition home or self-care (01) ==
LOC: HO.MAMMO 15:18
PROVIDERS: PCP Student in an Organized Health Care Education/Training Program; Visit Provider Student in an Organized Health Care Education/Training Program
DX: Z12.31 Encounter for screening mammogram for malignant neoplasm of breast (principal)
CPT/HCPCS: 77063; 77067

== ENCOUNTER → 2025-03-05 15:30 | Outpatient (BNV) | payer MEDICAID, SELFPAY | PROVIDERS: PCP Student in an Organized Health Care Education/Training Program; Visit Provider Internal Medicine | DX: Z12.31 Encounter for screening mammogram for malignant neoplasm of breast (principal) | CPT/HCPCS: 77063; 77067 ==